=== PATIENT | male | born 1985 | race Caucasian/White ===

== ENCOUNTER 2020-11-27 21:47 | Emergency (ER) | payer OTHER ==
[2020-11-27 23:08] LABS: HEMOGLOBIN 17.1 gm/dl (14.0-17.5); RED BLOOD COUNT 5.71 M/UL (4.20-5.50); WHITE BLOOD COUNT 9.7 K/UL (4.5-11.0)
[2020-11-27 23:26] LABS: BUN/CREATININE RATIO 11 (0-10)
== END 2020-11-28 01:48 | disposition home or self-care (01) ==
LOC: ER1 21:47
PROVIDERS: Student in an Organized Health Care Education/Training Program
DX: F11.23 Opioid dependence with withdrawal (principal)
CPT/HCPCS: 80053; 82550; 82553; 83605; 83690; 83874; 84484; 85025; 93005; 96374; 99284; G0480; J2405; J7120